=== PATIENT | female | born 1995 | race Native Hawaiian/Other Pacific Islander ===

== ENCOUNTER 2021-06-27 19:14 | Emergency (ER) | payer OTHER ==
[~2021-06-27] VITALS: Ht 170.2 cm; Wt 127.0 kg
[2021-06-27 20:06] LABS: PLATELET COUNT 445 K/uL (152-353)
[2021-06-27 20:59] LABS: POTASSIUM 3.3 mmol/L (3.6-5.2)
[2021-06-27 21:47] VITALS: BP 136/77; TEMP 99
== END 2021-06-27 21:47 | disposition home or self-care (01) ==
LOC: ED 19:14
PROVIDERS: Emergency Medicine
DX: B34.9 Viral infection, unspecified (principal); U07.1 COVID-19
CPT/HCPCS: 36415; 80053; 81000; 85027; 87502; 87635; 96360; 96375; 99284; J1885; U0003

== ENCOUNTER 2021-10-11 14:10 | Outpatient (CLI) | payer OTHER | END 2021-10-11 21:42 | disposition home or self-care (01) | LOC: US 14:10 | PROVIDERS: ATTEND Nurse Practitioner Family | DX: E28.2 Polycystic ovarian syndrome (principal) ==

== ENCOUNTER 2021-11-27 13:28 | Outpatient (CLI) | payer OTHER | END 2021-11-27 18:50 | disposition home or self-care (01) | LOC: US 13:28 | PROVIDERS: ATTEND Nurse Practitioner Primary Care | DX: N94.6 Dysmenorrhea, unspecified (principal) ==

== ENCOUNTER 2022-07-16 16:19 | Outpatient (CLI) | payer OTHER | END 2022-07-16 20:27 | disposition home or self-care (01) | LOC: RAD 16:19 | PROVIDERS: ATTEND Nurse Practitioner Primary Care | DX: M25.561 Pain in right knee (principal) ==